=== PATIENT | female | born 1965 | race Caucasian/White ===

== ENCOUNTER 2017-03-23 16:53 | Inpatient (IN) | payer OTHER ==
[2017-03-23] MEDS ORDERED: MORPHINE SULFATE 2 MG/ML DISP.SYRIN IV ONE ×2 (17:07→18:29)
[2017-03-23] MEDS ORDERED: ONDANSETRON HCL/PF 2 MG/ML VIAL IV ONE (17:07)
[2017-03-23] MEDS ORDERED: MORPHINE SULFATE 2 MG/ML DISP.SYRIN ONE ×2 (17:11→18:31)
[2017-03-23] MEDS ORDERED: ONDANSETRON HCL/PF 2 MG/ML VIAL ONE (17:11)
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
[2017-03-23 18:05] LABS: Hematocrit 41.4 % (37.0-47.0); Hemoglobin 13.5 gm/dL (12.5-16.0); Mean Cell Volume 83.3 fl (78-100); Mean Corpuscular Hemoglobin 27.2 pg (27-31); Mean Corpuscular Hgb Conc 32.6 g/dl (32-36); Neutrophil # 13.7 K/mm3 (1.3-6.0); Neutrophil % 85.5 % (42-75.0); Platelet Count 203 K/mm3 (150-450); Red Blood Count 4.97 M/mm3 (4.2-5.4); Red Cell Distribution Width 13.4 % (11.5-14.0)
[2017-03-23 18:26] LABS: Albumin * 3.6 gm/dl (3.4-5.0); Anion Gap 14.9 mmol/L (6.8-13.8); BUN/Creatinine Ratio 9.3 (9.0-21.6); Bilirubin, Total 0.8 mg/dL (0.0-1.1); Ca. Corrected For Albumin 8.5 mg/dL (8.4-10.2); Calcium * 8.5 mg/dL (7.9-10.9); Carbon Dioxide 23.1 mmol/L (24-32.6); Total Protein 7.3 gm/dL (6.2-8.2)
[2017-03-23] MEDS ORDERED: KETOROLAC TROMETHAMINE 30 MG/ML VIAL IV ONE (18:29)
[2017-03-23] MEDS ORDERED: KETOROLAC TROMETHAMINE 30 MG/ML VIAL ONE (18:31)
[2017-03-23] MEDS ORDERED: ONDANSETRON HCL/PF 2 MG/ML VIAL IV PRN (19:25)
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
[2017-03-23] MEDS: MORPHINE SULFATE 4 MG/ML SYRG IV PRN ×2 (20:58→21:56)
[2017-03-23] MEDS: oxyCODONE HCL/ACETAMINOPHEN 1 TAB TABLET PO PRN (20:59)
[2017-03-23] MEDS: SENNOSIDES/DOCUSATE SODIUM 1 TAB TABLET PO SCH (21:49)
[2017-03-23] MEDS ORDERED: ALBUTEROL SULFATE 200 PUFF INHALER IH PRN (23:33)
[2017-03-23] MEDS: MORPHINE SULFATE 2 MG/ML DISP.SYRIN IV PRN (23:52)
[2017-03-24] MEDS: NICOTINE 21 MG PATC TD SCH (00:03)
[2017-03-24] MEDS: oxyCODONE HCL/ACETAMINOPHEN 1 TAB TABLET PO PRN ×4 (02:48→21:17)
[2017-03-24] MEDS: MORPHINE SULFATE 2 MG/ML DISP.SYRIN IV PRN ×3 (04:33→10:28)
[2017-03-24 05:23] LABS: Hematocrit 38.1 % (37.0-47.0); Hemoglobin 12.6 gm/dL (12.5-16.0); Mean Cell Volume 82.1 fl (78-100); Mean Corpuscular Hemoglobin 27.2 pg (27-31); Mean Corpuscular Hgb Conc 33.1 g/dl (32-36); Mean Platelet Volume 9.2 fl (6.0-9.5); Neutrophil # 5.5 K/mm3 (1.3-6.0); Neutrophil % 62.9 % (42-75.0); Platelet Count 330 K/mm3 (150-450); Red Blood Count 4.64 M/mm3 (4.2-5.4); Red Cell Distribution Width 13.7 % (11.5-14.0); White Blood Count 8.7 K/mm3 (4.0-10.5)
[2017-03-24] MEDS ORDERED: ALBUTEROL SULFATE 2.5 MG/0.5 ML VIAL.NEB IH PRN (06:46)
[2017-03-24] MEDS: PANTOPRAZOLE SODIUM 40 MG TABLET.EC PO SCH (08:41)
[2017-03-24] MEDS: RINGER'S SOLUTION,LACTATED 1,000 ML IV PRN ×2 (08:41→17:18)
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
[2017-03-24 14:21] LABS: Urine Bilirubin Negative (NEGATIVE); Urine Blood 50 /ul (NEGATIVE); Urine Ketone Negative (NEGATIVE); Urine Nitrite Negative (NEGATIVE); Urine Protein Negative (NEGATIVE); Urine Urobilinogen Normal (NORMAL); Urine pH 6.5 pH (5.0-7.0)
[2017-03-24 14:44] LABS: Urine Appearance Clear; Urine Bacteria 1+; Urine Color Yellow; Urine RBC 0-5 /hpf (0-5); Urine WBC None Seen /hpf (0-5)
[2017-03-24 14:49] LABS: Cocaine Ur Negative (NEGATIVE); Urine Barbiturate Negative (NEGATIVE); Urine Opiates Negative (NEGATIVE); Urine PCP Negative (NEGATIVE)
[2017-03-24 14:52] LABS: Urine Benzodiazepines Positive (NEGATIVE); Urine THC Positive (NEGATIVE)
[2017-03-24] MEDS: IBUPROFEN 600 MG TABLET PO PRN (15:40)
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
[2017-03-24] MEDS: SENNOSIDES/DOCUSATE SODIUM 1 TAB TABLET PO SCH (20:25)
--- NOTE | 2017-03-24 23:30 | PN ---
Subjective - Date and Time Seen Date: 03/24/17 Time: 12:30 Subjective Narrative: Reports shortness of breath and pain with inhalation. No fever, chills, N/V. Discussed working on breathing exercises. Objective - Vitals Vitals: Last Vital Signs Temp 36 C L 03/24/17 22:59 Pulse 82 03/24/17 22:59 Resp 16 03/24/17 22:59 BP 111/61 03/24/17 22:59 Pulse Ox 94 03/24/17 22:59 - Abnormal Lab Findings Abnormal Lab Findings: Abnormal Lab Results 03/24/17 03/24/17 03/24/17 Range/Units 05:10 14:13 Unknown Immature Gran % (Auto) 0.50 H (0.001-0.429) % Immature Gran # (Auto) 0.04 H (0.000-0.0310) K/mm3 Monocytes % 9.6 H (0.0-9) % Basophils % 1.2 H (0.0-1.0) % Urine Blood 50 H (NEGATIVE) /ul Ur Epithelial Cells 5-10 H (0-5) /hpf Urine Bacteria 1+ H (NONE) U Benzodiazepines Scrn Positive H (NEGATIVE) Urine Marijuana (THC) Positive H (NEGATIVE) - Exam Constitutional: Present: Alert, Oriented x3, Cooperative ENT Exam: Present: hearing grossly normal Respiratory: Present: lungs clear, normal breath sounds Cardiovascular/Chest: Present: regular rate, rhythm, no murmur Abdomen: Present: Normal bowel sounds, soft, nontender, nondistended Assessment/Plan Plan Narrative: Pneumothorax is stable. No respiratory distress. Controlling pain. Will continue to work on deep breathing and pulmonary exercises. Will repeat chest xray in the AM. - Problems/Diagnosis (1) Pneumothorax on left Problem: Acute (2) Chest wall pain Problem: Acute (3) Ribs, multiple fractures Problem: Acute Qualifiers: Encounter type: initial encounter Fracture type: closed Laterality: left Qualified Code(s): S22.42XA - Multiple fractures of ribs, left side, initial encounter for closed fracture
[2017-03-25] MEDS: NICOTINE 21 MG PATC TD SCH ×2 (00:10→23:07)
[2017-03-25] MEDS: RINGER'S SOLUTION,LACTATED 1,000 ML IV PRN (01:52)
[2017-03-25] MEDS: PANTOPRAZOLE SODIUM 40 MG TABLET.EC PO SCH (07:05)
[2017-03-25] MEDS: oxyCODONE HCL/ACETAMINOPHEN 1 TAB TABLET PO PRN ×4 (07:05→23:06)
[2017-03-25] MEDS: SENNOSIDES/DOCUSATE SODIUM 1 TAB TABLET PO SCH ×2 (10:08→20:32)
[2017-03-25 11:23] LABS: Urine Color Yellow
[2017-03-25 11:24] LABS: Urine Appearance Cloudy
[2017-03-25 11:25] LABS: Urine Bilirubin Negative (NEGATIVE); Urine Blood 10 /ul (NEGATIVE); Urine Ketone Negative (NEGATIVE); Urine Protein Negative (NEGATIVE); Urine Specific Gravity 1.025 SP.GR. (1.005-1.010); Urine Urobilinogen Normal (NORMAL); Urine pH 5.5 pH (5.0-7.0)
[2017-03-25 11:26] LABS: Urine Nitrite Positive (NEGATIVE)
[2017-03-25 11:29] LABS: Urine Bacteria 3+; Urine RBC 0-5 /hpf (0-5)
[2017-03-25] MEDS: LEVOFLOXACIN 500 MG TABLET PO SCH (14:00)
[2017-03-25] MEDS: IBUPROFEN 600 MG TABLET PO PRN (14:02)
--- NOTE | 2017-03-25 23:40 | PN ---
Subjective - Date and Time Seen Date: 03/25/17 Time: 12:12 Subjective Narrative: Continuing to work on breathing exercises. Still having pain but improving. No fever, chills. Objective - Vitals Vitals: Last Vital Signs Temp 36.6 C 03/25/17 15:00 Pulse 89 03/25/17 15:00 Resp 18 03/25/17 15:00 BP 147/79 03/25/17 15:00 Pulse Ox 93 03/25/17 15:00 - Abnormal Lab Findings Abnormal Lab Findings: Abnormal Lab Results 03/25/17 Range/Units 10:30 Urine Blood 10 H (NEGATIVE) /ul Urine Nitrate Positive H (NEGATIVE) Ur Leukocyte Esterase 25 H (NEGATIVE) /ul Urine WBC 5-10 H (0-5) /hpf Urine Bacteria 3+ H (NONE) - Exam Constitutional: Present: Alert, Oriented x3, Cooperative ENT Exam: Present: hearing grossly normal Respiratory: Present: lungs clear, normal breath sounds Cardiovascular/Chest: Present: regular rate, rhythm, no murmur Abdomen: Present: Normal bowel sounds, soft, nontender, nondistended Assessment/Plan Plan Narrative: Pneumothorax stable, symptoms and pain improving. Working on pain control and increasing ambulation. Surgery needed to clavicle, planned for outpatient surgery next week. Continue to work on pain control, ambulation, and expect discharge to home tomorrow. - Problems/Diagnosis (1) Pneumothorax on left Problem: Acute (2) Clavicle fracture, shaft Problem: Acute Qualifiers: Encounter type: initial encounter Fracture type: closed Fracture alignment: displaced Laterality: left Qualified Code(s): S42.022A - Displaced fracture of shaft of left clavicle, initial encounter for closed fracture (3) Ribs, multiple fractures Problem: Acute Qualifiers: Encounter type: initial encounter Fracture type: closed Laterality: left Qualified Code(s): S22.42XA - Multiple fractures of ribs, left side, initial encounter for closed fracture
[2017-03-26] MEDS: oxyCODONE HCL/ACETAMINOPHEN 1 TAB TABLET PO PRN ×2 (03:48→08:23)
[2017-03-26] MEDS: IBUPROFEN 600 MG TABLET PO PRN (06:29)
[2017-03-26] MEDS: PANTOPRAZOLE SODIUM 40 MG TABLET.EC PO SCH (06:29)
[2017-03-26 06:37] VITALS: BP 154/75
[2017-03-26] MEDS: LEVOFLOXACIN 500 MG TABLET PO SCH (08:23)
[2017-03-26] MEDS: SENNOSIDES/DOCUSATE SODIUM 1 TAB TABLET PO SCH (08:23)
[2017-03-26] MEDS ORDERED: BISACODYL 5 MG TABLET.DR PO ONE (08:26)
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
== END 2017-03-26 10:15 | disposition home or self-care (01) | DRG 964 ==
LOC: ER 16:53 → MS 19:09 → INTOOBSV 23:30 → OBSVTOIN 23:30
PROVIDERS: ADMIT Nurse Practitioner Critical Care Medicine; ATTEND Family Medicine
DX: S27.0XXA Traumatic pneumothorax, initial encounter (principal); S06.9X9A Unspecified intracranial injury with loss of consciousness of unspecified duration, initial encounter; S22.42XA Multiple fractures of ribs, left side, initial encounter for closed fracture; N39.0 Urinary tract infection, site not specified; S42.022A Displaced fracture of shaft of left clavicle, initial encounter for closed fracture; V86.59XA Driver of other special all-terrain or other off-road motor vehicle injured in nontraffic accident, initial encounter; Y92.73 Farm field as the place of occurrence of the external cause; K21.9 Gastro-esophageal reflux disease without esophagitis; J44.9 Chronic obstructive pulmonary disease, unspecified; F17.210 Nicotine dependence, cigarettes, uncomplicated
CPT/HCPCS: 36415; 70450; 71010; 71020; 71260; 73000; 73060; 74177; 80053; 80307; 81001; 82150; 84484; 85025; 87077; 87086; 87186; 93005; 96374; 96375; 99284; G0378; J2405

== ENCOUNTER 2017-03-28 06:50 | Day surgery (SDC) | payer OTHER ==
[2017-03-28] MEDS: RINGER'S SOLUTION,LACTATED 1,000 ML IV PRN (07:25)
[2017-03-28] MEDS: ceFAZolin SODIUM 1 GM VIAL IV PRN (08:10)
[2017-03-28] MEDS: RINGER'S SOLUTION,LACTATED 1,000 ML IV ONE (09:00)
--- NOTE | 2017-03-28 10:08 | OR ---
Anesthesia Procedure Note - Anesthesia Procedure Note Date of Service: 03/28/17 Narrative: Vital Signs - Last Taken Temp 36.3 C L 03/28/17 10:00 Pulse 79 03/28/17 10:05 Resp 17 03/28/17 10:05 BP 101/58 03/28/17 10:05 Pulse Ox 97 03/28/17 10:05 O2 Oxygen Delivery Method Nasal Cannula 03/28/17 10:06 ANESTHESIA PROCEDURE NOTE Date of Procedure: 03/28/2017. Time of procedure: 744. Performed by: Vinh Ellison CRNA Client Services Account Manager: None. Preprocedure diagnosis: ORIF left clavicle fracture. Post procedure diagnosis: Same. Procedure: Left ultrasound guided interacalene nerve block for postoperative analgesia. Indications: The patient is a 51 -year-old female who is been consult for a left ultrasound guided interscalene nerve block for postop analgesia related to ORIF of left clavicle fracture. Findings: See below. Details of the procedure: The tissue over the intended target site was cleansed with ChloraPrep. 1 ml Lidocaine 1 % was infiltrated to the skin and subcutaneous tissue. Under sterile technique and ultrasound guidance a 22-gauge block needle was inserted to the left braclial plexus nerve bundle between the anterior scalene and the middle scalene muscles. 40 mL's of 0.5% bupivacaine plus epinephrine 1 200,000 was injected after negative aspiration for blood. Spread of local anesthetic around the brachial plexus was observed throughout the injection with ultrasound visualization. The needle was removed intact. No complications were noted. The images were retained in the hospital medical database . EBL: Minimal. Fluids: N/A. Specimen: N/A. Post procedure condition: The patient tolerated the procedure well. No complications were noted. Thank you for this consultation. Vinh Ellison CRNA
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
[2017-03-28 11:48] VITALS: BP 130/76
== END 2017-03-28 06:51 | disposition home or self-care (01) ==
LOC: AMB 06:50
PROVIDERS: ATTEND Orthopaedic Surgery
PROC: 3E0T3BZ Introduction of Anesthetic Agent into Peripheral Nerves and Plexi, Percutaneous Approach (ICD-10-PCS; 2017-03-28)
PROC: 0PSB04Z Reposition Left Clavicle with Internal Fixation Device, Open Approach (ICD-10-PCS; principal; 2017-03-28 08:00)
DX: S42.022A Displaced fracture of shaft of left clavicle, initial encounter for closed fracture (principal); K21.9 Gastro-esophageal reflux disease without esophagitis; F17.200 Nicotine dependence, unspecified, uncomplicated; Z68.30 Body mass index [BMI] 30.0-30.9, adult; V88.8XXA Person injured in other specified noncollision transport accidents involving motor vehicle, nontraffic, initial encounter